=== PATIENT | female | born 2005 | race Caucasian/White ===

== ENCOUNTER → 2023-09-30 17:48 | Outpatient (BNVA) | payer OTHER, SELFPAY | PROVIDERS: PCP Family Medicine; Visit Provider Emergency Medicine | DX: J02.9 Acute pharyngitis, unspecified (principal); J00 Acute nasopharyngitis [common cold] | CPT/HCPCS: 87071; 87880 ==

== ENCOUNTER → 2024-12-26 09:32 | Outpatient (BNVA) | payer OTHER, SELFPAY | PROVIDERS: PCP Nurse Practitioner Family; Visit Provider Nurse Practitioner | DX: J02.9 Acute pharyngitis, unspecified (principal) | CPT/HCPCS: 87071; 87880 ==